=== PATIENT | male | born 1955 | race Caucasian/White ===

== ENCOUNTER 2021-09-12 18:36 | Outpatient (CLI) | payer BC, SELFPAY ==
--- NOTE | ~2021-09-12 | XR_ITS ---
XR shoulder RT min 2V 09/12/2021 19:06 Indication: Acute right shoulder pain Procedure: 4 views right shoulder Comparison: No prior studies for comparison. Findings: There is superior subluxation of the humeral head with complete loss of subacromial joint s pace, suspicious for rotator cuff tear. No acute fracture or traumatic malalignment. There is osteoar thritis of the acromioclavicular joint. There are are calcific densities adjacent to the humeral head laterally, likely calcific tendinopathy. 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 Reviewed, dictated and finalized at location A. Impression: 1: Advanced polyarticular osteoarthritis of the right shoulder with probable ro tator cuff tear.
--- NOTE | ~2021-09-12 | XR_ITS ---
EXAMINATION: XR chest 2V 09/12/2021 19:06 INDICATION: Cough PROCEDURE: 2 view chest COMPARISON: No prior studies for comparison. FINDINGS: The lungs are clear. The cardiomediastinal silhouette is within normal limits. There are no pleural effusions. There is no pneumothorax suspected. IMPRESSION: 1: NO ACUTE CARDIOPULMONARY DISEASE. Reviewed, dictated and finalized at location A.
== END 2021-09-12 18:37 ==
PROVIDERS: PCP Family Medicine; Visit Provider Family Medicine
DX: M19.011 Primary osteoarthritis, right shoulder (principal); R05.9 Cough, unspecified
CPT/HCPCS: 71046; 73030

== ENCOUNTER 2024-06-14 18:31 | Emergency (ER) | payer OTHER, MEDICARE, SELFPAY ==
[2024-06-14 18:47] VITALS: BP 138/65; PULSE 68; RESP 16; TEMP 36.5; O2SAT 99
--- NOTE | 2024-06-14 18:53 | ED.SKABFB ---
HPI - Skin/Abscess/Foreign Bdy General Chief complaint: Skin/Abscess/Foreign Body Stated complaint: Right Ankle Pain Time Seen by Provider: 06/14/24 18:53 History of Present Illness HPI narrative: Patient presents with complaints of exerts invasion of chronic wound to right medial ankle. Patient reports that he has had multiple problems with the affected ankle for at least 6 years. He is supposed to have surgery in a couple of months to fuse the ankle. He reports that he has had skin changes with a wound to that lateral ankle for at least 6 months. He has been dressing it with Neosporin. He denies any fever, chills, sweats. He reports the skin surrounding the wound has become more red, other than that has not really changed very much. He states his orthopedic doctor has seen the wound many times. He says he is here today because his told him that she thinks it looks different Related Data Home Medications Medication Instructions Recorded Confirmed clobetasol 0.05 % topical ointment topical 06/14/24 dapagliflozin propaned 10 PO 06/14/24 mg-metformin ER 1,000 mg tablet,ext rel 24hr (Xigduo XR) hydrocodone 10 mg-acetaminophen tablet 06/14/24 325 mg tablet rivaroxaban 2.5 mg tablet (Xarelto) mg 06/14/24 semaglutide 0.25 mg or 0.5 mg (2 mg subcut 06/14/24 mg/3 mL) subcutaneous pen injector (Ozempic) simvastatin 10 mg tablet mg 06/14/24 triamcinolone acetonide 0.1 % applic topical 06/14/24 topical cream Allergies Allergy/AdvReac Type Severity Reaction Status Date / Time adhesive Allergy Rash Verified 06/14/24 19:34 Review of Systems Review of Systems: All systems reviewed & are unremarkable except as noted in HPI and below Constitutional: Constitutional: Reports no additional constitutional complaints ENT: Reports system reviewed and no additional complaints, except as documented Cardiovascular: Cardiovascular: Reports no additional cardiovascular complaints Respiratory: Respiratory: Reports no additional respiratory complaints Gastrointestinal: Gastrointestinal: Reports no additional gastrointestinal complaints Exam Const: General: cooperative, no acute distress, alert and awake Orientation/consciousness: oriented to person, oriented to place and oriented to time HENMT: Head: normal to inspection Resp: Effort & Inspection: normal respiratory effort and able to speak in complete sentences Auscultation: clear to auscultation bilaterally, no crackles, no rales, no rhonchi and no wheezes Cardio: Palpation: normal PMI Rate: regular rate Rhythm: regular rhythm Heart sounds: S1 normal heart sound present and S2 normal heart sound present Skin: Other: Right lateral ankle with cellulitic changes to the lateral ankle. Approximately 4 cm in diameter. There is a central linear wound in the fold, appears chronic. Patient has chronic venous stasis changes to bilateral lower extremities. No follow orders noted scant drainage from the linear wound, does not appear particularly purulence. The area surrounding the wound is erythematous and warm, consistent with cellular Neuro: General: oriented to person, oriented to place and oriented to time Cranial nerves: Yes CN's II-XII intact bilaterally Extrem: General: edema (Bilateral lymphedema, appears chronic) bilateral Psych: Appearance: grossly normal Thought process: Normal thought process present Insight: Good insight present (Psych) Judgement: Good judgement present (Psych) Course Course Level of Care: Express Care Visit Vital Signs Vital signs: Vital Signs Temperature 97.7 F 06/14/24 18:47 Pulse Rate 68 06/14/24 18:47 Respiratory Rate 16 06/14/24 18:47 Blood Pressure 138/65 06/14/24 18:47 Pulse Oximetry 99 06/14/24 18:47 Oxygen Delivery Room Air 06/14/24 18:47 Temperature 97.7 F 06/14/24 18:47 Pulse Rate 68 06/14/24 18:47 Respiratory Rate 16 06/14/24 18:47 Blood Pressure 138/65
== END 2024-06-14 19:25 | disposition home or self-care (01) ==
PROVIDERS: Emergency Provider Nurse Practitioner Family; PCP Family Medicine
DX: L03.115 Cellulitis of right lower limb (principal)
CPT/HCPCS: 99213; G0463